=== PATIENT | male | born 1995 | race Caucasian/White ===

== ENCOUNTER 2016-10-12 17:55 | Emergency (ER) | payer OTHER | END 2016-10-12 19:08 | disposition home or self-care (01) | DX: S62.024A Nondisplaced fracture of middle third of navicular [scaphoid] bone of right wrist, initial encounter for closed fracture (principal); W03.XXXA Other fall on same level due to collision with another person, initial encounter; Y93.61 Activity, american tackle football; Y92.321 Football field as the place of occurrence of the external cause ==

== ENCOUNTER 2016-12-28 14:41 | Emergency (ER) | payer OTHER ==
[2016-12-28 14:45] VITALS: BP 147/87
--- NOTE | 2016-12-28 15:04 | XRAY Preliminary Report ---
Exam: XR Foot 3 View RT IMPRESSION: Normal foot radiography. [facility] SITE ID: [id number]
--- NOTE | 2016-12-28 15:07 | XRAY Report ---
EXAM: RIGHT FOOT RADIOGRAPHY EXAM DATE: 12/28/2016 02:56 PM. CLINICAL HISTORY: rolled right foot last night, pain in lateral foot. Pain around the base of the f ifth metatarsal. COMPARISON: None. TECHNIQUE: 3 views. FINDINGS: Bones: Normal. No fractures or bone lesions. Joints: Normal. No subluxations. Soft Tissues: Normal. No soft tissue swelling. IMPRESSION: Normal foot radiography. [facility] Referring Provider Line: [phone] SITE ID: [id number]
--- NOTE | 2016-12-28 17:09 | XRAY Preliminary Report ---
Exam: XR Ankle 3 View RT IMPRESSION: Tiny calcific density seen distal to the lateral malleolus measuring 1 mm, could represen t a tiny acute or chronic avulsion fracture. Otherwise, no evidence for acute fracture. Moderate late ral ankle soft tissue swelling. [facility] SITE ID: [id number]
--- NOTE | 2016-12-28 17:12 | XRAY Report ---
EXAM: RIGHT ANKLE RADIOGRAPHY EXAM DATE: 12/28/2016 04:50 PM. CLINICAL HISTORY: Twisted on stairs. Twisted ankle on stairs earlier today. COMPARISON: None. TECHNIQUE: 3 views. FINDINGS: Bones: Tiny calcific density seen distal to the lateral malleolus measuring 1 mm, could represent a t iny acute or chronic avulsion fracture. Otherwise, no evidence for acute fracture. Joints: No subluxations. The ankle mortise is normally aligned. Soft Tissues: Moderate lateral ankle soft tissue swelling. IMPRESSION: Tiny calcific density seen distal to the lateral malleolus measuring 1 mm, could represen t a tiny acute or chronic avulsion fracture. Otherwise, no evidence for acute fracture. Moderate late ral ankle soft tissue swelling. [facility] Referring Provider Line: [phone] SITE ID: [id number]
--- NOTE | 2016-12-28 17:28 | ED Physician Documentation ---
History of Present Illness - Stated complaint Stated Complaint: RT ANKLE INJ - Chief complaint Chief Complaint: Ext Problem - Additonal information Additional information: hx from pt [place] male walking down stairs in slides and twisted R foot and ankle hurts to walk no other injury Review of Systems Musculoskeletal: reports: Pain with weight bearing PD PAST MEDICAL HISTORY - Past Surgical History Past Surgical History: No - Present Medications Home Medications: Ambulatory Orders Medication Instructions Recorded Confirmed No Known Home Medications [No 10/12/16 12/28/16 Known Home Medications] - Allergies Allergies/Adverse Reactions: Allergies Allergy/AdvReac Type Severity Reaction Status Date / Time No Known Drug Allergies Allergy Verified 12/28/16 16:13 - Social History Does the pt smoke?: No Smoking Status: Never smoker Does the pt drink ETOH?: No Does the pt have substance abuse?: No - Immunizations Immunizations are current?: Yes - POLST Patient has POLST: No PD ED PE NORMAL - Vitals Vital signs reviewed: Yes - Extremities Extremities: Other (RLE edema and TTP lateral mall and base 5th, no laxity, MSV intact, no knee pain) Results - Vitals Vitals: Vital Signs - 24 hr 12/28/16 14:43 Temperature 36.5 C Heart Rate 89 Respiratory 18 Rate Blood Pressure 147/87 H O2 Saturation 97 Oxygen O2 Source Room air - Rads (name of study) foot Radiology: See rad report (neg) ankle Radiology: See rad report (tiny lat mall avulsiuon) Departure - Departure Disposition: 01 Home, Self Care Clinical Impression: Ankle sprain Qualifiers: Encounter type: initial encounter Involved ligament of ankle: other ligament Laterality: right Qualified Code(s): S93.491A - Sprain of other ligament of right ankle, initial encounter Condition: Good Instructions: ED Sprain Ankle Follow-Up: JORDI Benitez [Provider Group] Comments: There is no foot fracture. The ankle xray shows a very tiny chip of bone off the outside ankle - this more of a ligament injury (sprain) than a true fracture. Recommend wearing the splint and staying completely off the foot for at least 2 weeks Follow up with orthopedics at [facility] for a recheck to to get cleared to advance activity Motrin and ice as needed for the pain Also please get your blood pressure rechecked - it was a little bit high today Forms: Activity restrictions
== END 2016-12-28 17:40 | disposition home or self-care (01) ==
LOC: ED 14:41
DX: S93.491A Sprain of other ligament of right ankle, initial encounter (principal); X50.1XXA Overexertion from prolonged static or awkward postures, initial encounter; Y93.01 Activity, walking, marching and hiking
CPT/HCPCS: 99283

== ENCOUNTER 2019-05-09 22:55 | Emergency (ER) | payer OTHER ==
[2019-05-10] MEDS ORDERED: CHERRY SYRUP 10 ML UDC PO ONE (01:11)
[2019-05-10] MEDS ORDERED: DEXAMETHASONE 10 MG/ML VIAL PO STA (01:11)
--- NOTE | 2019-05-10 01:12 | ED Physician Documentation ---
PD HPI SKIN - Stated complaint Stated Complaint: SKIN BUMPS - Chief complaint Chief Complaint: Wound - History obtained from History obtained from: Patient - History of Present Illness Timing - onset: How many days ago (5) Timing - duration: Days (5) Timing - details: Gradual onset, Still present Location: [place] Quality / character: Itchy (milc), Discolored, Raised Improved by: Benadryl Contributing factors: Recent illness Similar symptoms before: Has not had sx before Recently seen: Not recently seen - Additional information Additional information: Previously well 24-year-old male has developed urticaria on his body and symptoms have been coming and going for the past 5 days. He is taken some Benadryl with some improvement in his symptoms he has had a little bit of itching with this he has not had exposure to new medications or new laundry detergents or new foods. He has had a recent illness with a sore throat. He had a friend who had strep and developed scarlet fever. He says that his symptoms have now resolved from his sore throat and he his cough is now resolved as well. He does not feel ill currently. Review of Systems Constitutional: denies: Fever Eyes: denies: Decreased vision Ears: denies: Ear pain Nose: reports: Congestion. denies: Rhinorrhea / runny nose Throat: reports: Sore throat Cardiac: denies: Chest pain / pressure, Palpitations Respiratory: reports: Cough. denies: Dyspnea GI: denies: Nausea, Vomiting : denies: Dysuria, Frequency Skin: reports: Rash Musculoskeletal: denies: Neck pain, Back pain, Extremity pain PD PAST MEDICAL HISTORY - Past Medical History Past Medical History: No - Past Surgical History Past Surgical History: No - Allergies Allergies/Adverse Reactions: Allergies Allergy/AdvReac Type Severity Reaction Status Date / Time No Known Drug Allergies Allergy Verified 05/09/19 23:05 - Social History Does the pt smoke?: No Smoking Status: Never smoker Does the pt drink ETOH?: No Does the pt have substance abuse?: No - Immunizations Immunizations are current?: Yes - POLST Patient has POLST: No PD ED PE NORMAL - Vitals Vital signs reviewed: Yes (hypertensive mild) - General General: Alert and oriented X 3, No acute distress, Well developed/nourished - HEENT HEENT: Atraumatic, PERRL, EOMI, Ears normal, Moist mucous membranes, Pharynx benign, Dentition benign - Neck Neck: Supple, no meningeal sign, No bony TTP - Cardiac Cardiac: RRR, No murmur - Respiratory Respiratory: No respiratory distress, Clear bilaterally - Abdomen Abdomen: Soft, Non tender - Back Back: No CVA TTP, No spinal TTP - Derm Derm: Normal color, Warm and dry, Other (There is an urticarial rash over the forearms legs and back. There is no evidence of scabies.) - Extremities Extremities: No deformity, No tenderness to palpate, Normal ROM s pain, No edema - Neuro Neuro: Alert and oriented X 3, stockroom helper 2-12 intact, No motor deficit, No sensory deficit, Normal speech Eye Opening: Spontaneous Motor: Obeys Commands Verbal: Oriented GCS Score: 15 - Psych Psych: Normal mood, Normal affect Results - Vitals Vitals: Vital Signs - 24 hr 05/09/19 05/10/19 23:03 01:50 Temperature 36.3 C L Heart Rate 87 75 Respiratory 15 18 Rate Blood Pressure 145/88 H 138/87 H O2 Saturation 100 100 Oxygen O2 Source Room air - Labs Labs: Laboratory Tests 05/10/19 01:00 Group A Strep Rapid Negative PD MEDICAL DECISION MAKING - ED course Complexity details: considered differential, d/w patient ED course: 24-year-old male with urticaria and a recent history of sore throat is treated here in the emergency department with dexamethasone 10 mg orally I have encouraged patient to use an antihistamine over the next 2 days and a strep screen is pending. Departure - Departure Disposition: 01 Home, Self Care Clinical Impression: Urticaria Condition: Stable Instructions: ED Urticaria Follow-Up: JORDI Benitez [Provider Group] Discharge Date/Time: 05/10/19 01:50
[2019-05-10 01:51] VITALS: BP 138/87
== END 2019-05-10 01:50 | disposition home or self-care (01) ==
LOC: ED 22:55
DX: L50.9 Urticaria, unspecified (principal)
CPT/HCPCS: 87070; 87430; 99283; 99284; A9270